=== PATIENT | female | born 1985 | race Caucasian/White ===

== ENCOUNTER 2017-01-08 14:04 | Emergency (ER) | payer OTHER ==
[~2017-01-08] VITALS: Ht 149.9 cm; Wt 38.8 kg
[~2017-01-08 14:04] MED LIST: CLONIDINE HCL0.1 MG PO; IBUPROFEN800 MG PO; NO MEDS; NOHOMEMEDS; PRENATAL TABLE1 EAC3 PO; SUBOXONE 8 MG-1 EAC2 SL; TRAZODONE HCL50 MG PO
[2017-01-08 15:46] LABS: HEMATOCRIT 39.7 % (36.0-46.0); MCH 30.2 PG (29.0-34.0); MCHC 35.3 G/DL (30.0-36.0); MCV 85.7 FL (83-99); NRBC (%) 0.3 /100 WBC (0-0); PLATELET COUNT 196 K/uL (156-360); RBC DIS.WIDTH-CV 12.1 % (11.8-14.6); RED BLOOD COUNT 4.63 M/uL (3.80-5.20)
[2017-01-08 15:56] LABS: CHLORIDE 106 mEq/L (99-109); POTASSIUM 4.1 mEq/L (3.7-5.4); SODIUM 138 mEq/L (136-147)
[2017-01-08 15:58] LABS: GLUCOSE 80 mg/dL (70-99)
[2017-01-08 16:00] LABS: ANION GAP 9 MEQ/L (2-14); TOTAL BILIRUBIN 0.5 mg/dL (0.0-1.0)
[2017-01-08 16:02] LABS: ALKALINE PHOSPHATASE 76 IU/L (3-129); GFR ESTIMATE (CALCULATED) > 59 mL/min/
[2017-01-08 16:03] LABS: UREA NITROGEN (BUN) 12 mg/dL (9-23)
[2017-01-08 16:12] LABS: QUANTITATIVE HCG < 4.0 MIU/ML
[2017-01-08 16:46] LABS: LIPASE 18 U/L (1.0-51.0)
[2017-01-08 17:53] LABS: ADD MIUA? YES; BILIRUBIN NEGATIVE; BLOOD NEGATIVE; COLOR YELLOW ((YELLOW)); GLUCOSE (STRIP) NEGATIVE; KETONES 20; LEUKOCYTES TRACE; NITRITE NEGATIVE; PROTEIN (STRIP) NEGATIVE; UROBILINOGEN 0.2 MG/DL (0.2-1.0)
[2017-01-08 18:00] LABS: BACTERIA RARE /HPF; EPITHELIAL CELLS RARE /HPF; MUCUS NONE SEEN /LPF; RED BLOOD CELLS 0-5 /HPF (0-5); UCUL ADDED? NO; WHITE BLOOD CELLS 0-5 /HPF (0-5)
[2017-01-08 18:11] LABS: SPECIFIC GRAVITY 1.098 (1.000-1.030)
[2017-01-08] MEDS ORDERED: NAPROXEN500 MG PO (18:31)
[2017-01-08 18:47] VITALS: BP 104/71
== END 2017-01-08 18:49 | disposition home or self-care (01) ==
LOC: EME 14:04
DX: R10.12 Left upper quadrant pain (principal); Z87.442 Personal history of urinary calculi; F17.200 Nicotine dependence, unspecified, uncomplicated
CPT/HCPCS: 71020; 74177; 80053; 81003; 83690; 84702; 85027; 99281; 99285; J1885; J7030